=== PATIENT | female | born 1940 | race Caucasian/White ===

== ENCOUNTER 2018-03-03 15:30 | Inpatient (IN) | payer OTHER ==
[~2018-03-03] VITALS: Ht 160 cm; Wt 73.5 kg
== END 2018-03-08 11:41 | DRG 735 ==
LOC: OB/GYN 03-06 06:05 → O/R 03-06 06:05 → OB/GYN 03-06 13:45
PROVIDERS: Obstetrics & Gynecology Gynecologic Oncology
PROC: 07TC4ZZ Resection of Pelvis Lymphatic, Percutaneous Endoscopic Approach (ICD-10-PCS; 2018-03-06)
PROC: 0UT74ZZ Resection of Bilateral Fallopian Tubes, Percutaneous Endoscopic Approach (ICD-10-PCS; 2018-03-06)
PROC: 0UT24ZZ Resection of Bilateral Ovaries, Percutaneous Endoscopic Approach (ICD-10-PCS; 2018-03-06)
PROC: 0UT94ZZ Resection of Uterus, Percutaneous Endoscopic Approach (ICD-10-PCS; principal; 2018-03-06 13:45)
DX: C54.1 Malignant neoplasm of endometrium (principal)

== ENCOUNTER → 2022-11-02 | Day surgery (SDC) | payer OTHER ==
[~2022-11-02] VITALS: Ht 121.9 cm; Wt 65.8 kg
[~2022-11-02] MED LIST: COZAAR100 MG PO; GLUMETZA500 MG PO; LEVOTHYROXINE25 MCG PO; TOPROL XL25 M1 PO
== END | disposition home or self-care (01) ==
LOC: CIR.AMB 05:30
PROVIDERS: ATTEND Surgery
DX: D05.11 Intraductal carcinoma in situ of right breast (principal); I10 Essential (primary) hypertension; E78.5 Hyperlipidemia, unspecified; E03.9 Hypothyroidism, unspecified; E16.2 Hypoglycemia, unspecified
CPT/HCPCS: 19301; 19281; L8699